=== PATIENT | female | born 1965 | race Hispanic/Latino ===

== ENCOUNTER 2017-05-28 09:24 | Inpatient (IN) | payer OTHER ==
[~2017-05-28] VITALS: Ht 160 cm; Wt 77.9 kg
[2017-05-28 09:38] VITALS: BP 144/73; PULSE 126; RESP 24; O2SAT 100
--- NOTE | 2017-05-28 09:39 | ED.REPORT ---
HPI-General Illness Date of Service May 28, 2017 ED Provider: Dr. Dejesus Pt is a 52 year old female with a hx of hypothyroid and recently diagnosed DM presenting to the ED complaining of vomiting onset 1 week ago. Associated symptoms include constipation, dizziness, thirsty, dry mouth, [place], blurry vision, and weakness. Denies abdominal pain, cough, or any other symptoms at this time. Nursing Notes Stated Complaint: BLURRY VISION/WEAK/HEAVY BREATHING Chief Complaint: General Complaint Nursing Notes Reviewed: Yes Allergies: Coded Allergies: Penicillins (Verified Allergy, Unknown, swelling, 05/28/17) General Time Seen by MD: 09:38 Chief Complaint Vomiting Hx Obtained From: Patient Arrived By: Walk-in Sudden in Onset?: No Onset Occurred: 1 week ago Symptom Duration: Since onset Severity: Current: No pain currently Severity: Maximum: No pain Recent Healthcare: No recent doctor visit, No recent hospitalization Similar Sx Previous: No Past Medical History Past Medical History hypothyroid, recent dx of DM Past Surgical History denies Smoking History Never Smoker Social History Alcohol Use: "Social" Ambulatory Status Independent Review of Systems Full Review of Systems Eyes: Reports: Blurred bilateral Respiratory: Denies: Non-productive cough GI: Reports: Constipation, Nausea, Vomiting, Denies: Abdominal pain, Diarrhea Neurologic: Reports: Dizziness, Weakness Complete sys rev & neg: except as marked. Physical Exam Vital Signs Vital Signs Date Time Temp Pulse Resp B/P Pulse Ox O2 Delivery O2 Flow Rate FiO2 05/28/17 10:26 118 28 142/83 100 Room Air 05/28/17 09:38 36.4 126 24 144/73 100 Room Air Initial VS: Reviewed General/Constitutional: Well-developed, Well-nourished Head / Eyes: Atraumatic, Normocephalic, PERRL ENT: Mucous membranes moist, Conjunctiva normal, No scleral icterus Abdomen / GI: Soft, Non-tender, No guarding, No rebound, No distention Extremities: Vascular intact, Neuro intact, No swelling, No tenderness Skin: Warm, Dry, No cyanosis Psychiatric: Mood/affect normal, Behavior normal, Normal thought content Head / Eyes: Atraumatic, Normocephalic, PERRL, EOMI Mouth dry Respiratory / Chest: Atraumatic, Breath sounds NL Tachypnic. Kussmal breathing. Cardiovascular: Regular rhythm, Heart sounds NL Tachycardic Neurologic: Oriented X3, Speech NL, No motor deficits, No sensory deficits, CN II - XII intact, Cerebellar NL Interpretation & Diagnostics Interpretation & Diagnostics: Blood Gas: pH: 7.173 pCO2: 19 pO2: 63.5 cHCO3: 6.7 cBase: -20.9 Lab Results Interpretation Result Diagram: 05/28/17 1000 05/28/17 1000 Test 05/28/17 10:00 05/28/17 10:35 White Blood Count 23.4th/mm3 (3.8-10.1) Red Blood Count 5.39mil/mm3 (3.90-5.20) Hemoglobin 15.1g/dL (12.0-15.6) Hematocrit 47.0% (35.0-46.0) Mean Corpuscular Volume 87.2fL (81-100) Mean Corpuscular Hemoglobin 28.0pg (27.0-35.0) Mean Corpuscular Hemoglobin Concent 32.1% (32.0-37.0) Red Cell Distribution Width 15.2% (12.3-15.4) Platelet Count 206bil/L (150-400) Neutrophils (%) (Auto) 88.0% (40-74) Lymphocytes (%) (Auto) 6.8% (14-46) Monocytes (%) (Auto) 4.3% (4-12) Eosinophils (%) (Auto) 0% (0-5) Basophils (%) (Auto) 0.2% (0-3) Sodium Level 140mEq/L (134-144) Potassium Level 4.8mEq/L (3.5-5.2) Chloride Level 93mEq/L (97-108) Carbon Dioxide Level 6mmol/L (18-29) Blood Urea Nitrogen 44mg/dL (6-24) Creatinine 1.44mg/dL (0.57-1.00) Estimat Glomerular Filtration Rate 55mL/min (>59) Glucose Level 765mg/dL (60-99) Calcium Level 10.0mg/dL (8.5-10.1) Magnesium Level 2.8mg/dL (1.6-2.6) Total Bilirubin 0.4mg/dL (0.0-1.2) Aspartate Amino Transf (AST/SGOT) 65U/L (0-50) Alanine Aminotransferase (ALT/SGPT) 91U/L (0-32) Alkaline Phosphatase 223U/L (25-150) Total Protein 9.1g/dL (6.4-8.4) Albumin 4.6g/dL (3.4-5.0) Hold Christianson Top Tube Received (Received) Ketones Small (Negative) Urine Color Straw (YELLOW) Urine Appearance Hazy (CLEAR,HAZY) Urine pH 5.5 (5.0-8.0) Urine Specific [place] 1.020 (1.003-1.035) Urine Protein 100mg/dL (NEG,TRACE) Urine Glucose (UA) 1000mg/dL (NEGATIVE) Urine Ketones 80mg/dL (NEGATIVE) Urine Occult Blood Large (NEGATIVE) Urine Nitrite Negative (NEGATIVE) Urine Bilirubin Negative (NEGATIVE) Urine Urobilinogen Normalmg/dL (NORMAL) Urine Leukocyte Esterase Negative (NEGATIVE) Urine RBC 3-10/hpf (0-2) Urine WBC 0-5/hpf (0-5) Urine Epithelial Cells Occasional/hpf (NONE-MOD) Urine Crystals None seen (NONE SEEN) Urine Bacteria Few/hpf (NONE-FEW) Urine Hyaline Casts None/lpf (NONE) Urine Granular Casts Occasional (NONE SEEN) Urine Waxy Casts None seen (NONE SEEN) Urine Red Blood Cell Casts None seen (NONE SEEN) Urine White Blood Cell Casts None seen (NONE SEEN) Urine Mucus None seen (None Seen) Urine Trichomonas None seen (NONE SEEN) Urine Yeast None (NONE SEEN) Urinalysis Comment None Urine Culture Reflexed Not indicated ECG Interpretation ECG Interpretation: Sinus tachycardia at rate of 110 and LVH. Time: 12:05 Interpreted by: ED physician X-Ray Chest Interpretation Chest Xray Interpretation: IMPRESSION: No acute cardiopulmonary disease. Dictated by: Eduard Dan M.D. on 05/28/2017 at 10:00 View: Portable, 1 view Interpretation / Wet Read by: Interpret - Radiologist Re-Eval/Medical Decision Med Decision/Clinical Course Findings of DKA. No obvious source of infection however the liver function tests are abnormal. Ultrasound is ordered to exclude infection though this may likely represent shock as well. Insulin drip initiated in the ER after IV fluids. Time of Eval: 10:06 Patient Status: Condition improved Re-Evaluation/Progress Note: Discussed past medical history. Time of Eval: 10:34 Patient Status: Condition improved Re-Evaluation/Progress Note: Abdomen soft non tender. Denies fever, chills or cough. No infectious symptoms. Discussed plan for admission. Pt understands and agrees. Consultation : Referral / Consult Name: Sunita Deras DO Consulted With: Hospitalist Call Returned at: 11:18 House Wrecker: Will see patient, Agrees with plan, Accepts admit Counseled Regarding: Diagnosis, Lab results, Need for follow-up, When/why to return to ED Discharge & Departure Primary Impression: DKA (diabetic ketoacidoses) Diabetes mellitus type: type 2 Diabetes mellitus complication detail: without coma Qualified Code: E13.10 - Other specified diabetes mellitus with ketoacidosis without coma Disposition: Home Discharge Condition All VS Reviewed: Yes Condition: Improved Referrals: Xochilt Baum (PCP) Crit Care Except Billable Proc Time Spent: 30-74 minutes Services Performed: Patient management by me, Time spent at bedside, Reviewing test results Critical Care Notes: See MDM Scribe Attestation Portions of this note were transcribed by Hailee Zurita. I, Dr. Dejesus personally performed the history, physical exam and medical decision-making; I reviewed and confirmed the accuracy of the information in the transcribed note. Signed by: Meka Martin, 05/28/17 at 1123. copies to: Xochilt Baum Timothy S DO May 28, 2017 09:39 HAILEE ZURITA May 28, 2017 09:48
[2017-05-28] MEDS ORDERED: 0.9% Sodium Chloride 1,000 ML IV ONE (09:46)
[2017-05-28] MEDS ORDERED: 0.9% Sodium Chloride 1,000 ML IV SCH ×2 (09:50→11:19)
[2017-05-28 10:26] VITALS: BP 142/83; PULSE 118; RESP 28; O2SAT 100
--- NOTE | 2017-05-28 10:27 | ABG ---
DateTimeAnalyzed 10:21:00 -_ pH ____7.173 - pCO2 ___18.9__ -mmHg pO2 ___63.5__ -mmHg HCO3- ____6.7__ -mmol/L ABE __-20.9__ -mmol/L tHb ___15.8__ -g/dL O2Hb ___84.4__ -% COHb ____2.2__ -% MetHb ____0.4__ -% sO2 ___86.7__ -% FIO2 ___21.0__ -% Drawn By LAB - Date/Time Notified____ 10:27:00 -_ Notified By btl - Notified Whom ___Dr. O'Lalita - B 759 -mmHg tO2 ___18.7__ -Vol%
[2017-05-28 10:30] LABS: BASOPHILS % (AUTO) 0.2 % (0-3); EOSINOPHILS % (AUTO) 0 % (0-5); MONOCYTES % (AUTO) 4.3 % (4-12); Mean Corpuscular Volume 87.2 fL (81-100); Platelet Count 206 bil/L (150-400)
[2017-05-28] MEDS ORDERED: Insulin Human REGular Inj 100 UNIT in 0.9% Sodium Chloride 100 ML IV SCH ×2 (10:35→14:00)
[2017-05-28 10:58] LABS: Magnesium 2.8 mg/dL (1.6-2.6)
--- NOTE | 2017-05-28 11:02 | DRSVH ---
PROCEDURE: X-RAY CHEST ONE VIEW, PORTABLE ([id number]) INDICATIONS: 52 year-old female with tachypnea. TECHNIQUE: One view of the chest was acquired. COMPARISON: None. FINDINGS: Surgical changes and devices: None. Lungs and pleura: No pleural effusions or pneumothorax. Lungs are clear. Lung volumes are decrease d. Mediastinum: Mediastinal contours appear normal. Heart size is normal. Bones and chest wall: No suspicious bony lesions. Overlying soft tissues appear unremarkable. IMPRESSION: No acute cardiopulmonary disease. Dictated by: Eduard Dan M.D. on 05/28/2017 at 10:00 Approved by: Eduard Dan M.D. on 05/28/2017 at 10:01
--- NOTE | 2017-05-28 11:12 | NUR ---
NUTRITION CONSULT RN called re pt with newly diagnosed diabetes, no h/o diabetic education and asking RN a lot of diet questions. RN concerned pt may leave AMA prior to being admitted for DKA. Spoke with pt and family at length with tanning consultant present re diabetic diet, portion sizes, metformin side effects and hypoglycemia. Provided pt with TrueMetrix meter; pt will need prescription for strips. Once pt admitted will need to consult MOC RN for glucometer instruction. Will f/u PRN. Referral for outpatient diabetic education completed.
[2017-05-28 11:19] LABS: APPEARANCE,URINE HAZY (CLEAR,HAZY); COLOR,URINE STRAW (YELLOW); OCCULT BLOOD,URINE LARGE (NEGATIVE); PH,URINE 5.5 (5.0-8.0)
[2017-05-28] MEDS ORDERED: Alum-Mag Hydrox-Simeth 30 mL Suspension PO PRN ×2 (11:20→11:30)
[2017-05-28] MEDS ORDERED: Ondansetron 2 mg/mL 2 mL Inj IVPUSH PRN ×2 (11:20→11:30)
[2017-05-28 11:21] LABS: UROBILINOGEN,URINE NORMAL (NORMAL)
[2017-05-28 12:40] VITALS: BP 131/70; PULSE 101; RESP 27; O2SAT 99
--- NOTE | 2017-05-28 12:40 | NUR ---
Arrival to room 2017 Patient escorted from ED to room 2017. motor adjuster at bedside. Alert and oriented x 3. Transferred from cart to bed with steady gait. Denies pain. nuclear monitoring technician applied, ST with HR in the low 100s. Pressure stable. Afebrile. Denies SOA. Sp02>92% on room air. No reported nausea. Complaints of excessive thirst. Bedside blood glucose 456, Dr Bean notified and insulin gtt adjusted per DKA policy. Patient oriented to room, call light and plan of care. Will continue to monitor.
[2017-05-28 13:02] VITALS: BP 123/72; PULSE 101; RESP 26; O2SAT 99
[2017-05-28] MEDS ORDERED: Potassium Chloride Inj 40 MEQ in Dextrose 5% 250 ML IV ONE (13:55)
[2017-05-28] MEDS ORDERED: LEVO112T4 PO (13:56)
[2017-05-28] MEDS ORDERED: METF500T7 PO (13:56)
[2017-05-28] MEDS: Heparin 5,000 Unit/mL Inj SUBQ SCH ×2 (13:59→16:50)
[2017-05-28] MEDS ORDERED: SODIUM CHLORIDE 0.45% IV ONE (14:00)
[2017-05-28] MEDS ORDERED: POTASSIUM CHLORIDE IV ONE (14:00)
[2017-05-28] MEDS ORDERED: D5 0.45% NaCl + KCl 40 mEq/L 1,000 ML IV ONE (14:10)
--- NOTE | 2017-05-28 15:35 | DRSVH ---
PROCEDURE: US ABDOMEN INDICATIONS: leukocytois, abn LFT, vomiting, (also in DKA) TECHNIQUE: Real-time scanning was performed of the abdominal and retroperitoneal organs, with image documentatio n. COMPARISON: None. FINDINGS: Liver length: 13.74 cm Gallbladder Wall Thickness: 2.50 mm CHD: Not well-seen CBD: 3 mm Spleen length: 9.02 cm Right kidney length: 11.06 cm Left kidney length: 11.81 cm Aorta(Proximal): 2.29 cm Aorta(Mid): 1.69 cm Aorta(Distal): 1.55 cm RCIA: 1.04 cm LCIA: 1.05 cm Liver: There is coarse echogenic appearance of the liver in keeping with diffuse hepatocellular disea se/fatty infiltration Gallbladder: Unremarkable. No wall thickening. No sonographic Soler's sign. Focal fatty sparing seen adjacent to the gallbladder anteriorly. Biliary ducts: Intrahepatic bile ducts are non-dilated. Extrahepatic bile duct caliber is normal. Normal is 6-7 mm or less in diameter, or 10 mm or less post-cholecystectomy. Pancreas: Visualized portions of the pancreas are sonographically normal. Spleen: Spleen is normal in size and homogeneous in echotexture. Kidneys: Kidneys are normal in size and echotexture. No hydronephrosis or nephrolithiasis. No gera d masses. Left renal cyst with simple appearance measuring 1.9 cm in the upper pole Aorta: Visualized aorta is normal in caliber at less than 3 cm. Iliacs: Proximal common iliac arteries are normal in caliber at less than 2.5 cm. IVC: Intrahepatic inferior vena cava is patent. Miscellaneous: No free abdominal fluid. IMPRESSION: Echogenic liver suggestive of diffuse hepatocellular disease/fatty filtration. Normal appearance of the gallbladder. Pancreas not well seen and recommend clinical/laboratory correlation. Left renal cyst. Dictated by: Oli Hidalgo M.D. on 05/28/2017 at 15:30 Approved by: Oli Hidalgo M.D. on 05/28/2017 at 15:33
[2017-05-28 15:49] VITALS: BP 101/59; PULSE 103; RESP 19; O2SAT 100
[2017-05-28] MEDS: Diphen-Lido-Mylanta 1:1:1 Susp 15 mL Syringe PO SCH (16:50)
--- NOTE | 2017-05-28 17:15 | PCM.HPMED ---
Subjective Date of Service May 28, 2017 Primary Provider: Admitting Physician: Sunita Deras DO Primary Care Physician: Xochilt Baum Attending Physician: Sunita Deras DO Chief Complaint: Vomiting and malaise History of Present Illness: Ms. Marie Vincent is a very pleasant primary Indonesian speaking lady admitted to [facility] for one week hx of increased thirst, oral thrush, malaise, nausea and vomiting, blurry vision, lower extremity cramps, weakness and constipation. She reports 1 month ago visiting a medical clinic and was told due to her Hemoglobin A1c level of 7.6 that she was "pre-diabetic"and should begin Metformin 500 mg ER daily. After roughly 2 weeks, she began to experience blurry vision, a sore throat and oral thrush. She took baking-soda for her sore throat but her weakness continued to deteriorate. Around the 22 of May she experienced some significant family stress along with new onset nausea and vomiting. during the past week she added more sugar to her coffee and increased her intake of milkshakes and other sweet drinks. She continued to remain very thirsty and very weak and decided to come to the emergency department. Upon arrival her vitals were as follows; T-36.4, HR 126, RR 24, BP 144/73, 100% RA. Labs showed - WBC 23.4, Neuts 88 %, Na - 140, K+ 4.8, BUN 44, Cre 1.44, Glu 765 , Mag 2.8, AST/ALT/ALk p - 65/91/223. A1c pending. CXR - no acute cardiopulmonary disease. Abdomen US - Echogenic liver suggestive of diffuse hepatocellular disease/fatty filtration, Pancreas not well seen and recommend clinical/laboratory correlation. Left renal cyst. ABG DateTimeAnalyzed 10:21:00 -_ pH ____7.173 - pCO2 ___18.9__ -mmHg pO2 ___63.5__ -mmHg HCO3- ____6.7__ -mmol/L Review of Systems: A comprehensive review of systems was conducted with the patient and found to be negative except as above in the History of Present Illness. Allergies Coded Allergies: Penicillins (Verified Allergy, Unknown, swelling, 05/28/17) Home Medications Metformin 500 mg ER Daily Levothyroxine 112 Mcg Daily PMH hypothyroid recent dx of DM Surgical History None Family History "Cancer" fathers side. Social History Occupation: food service worker Hx Alcohol Use: Yes ("rarely") Hx Substance Use: No Hx Tobacco Use: No Smoking Status: Never Smoker Living Arrangement: with Family Exam Vital Signs Vital Sign - Last Date Time Temp Pulse Resp B/P Pulse Ox O2 Delivery O2 Flow Rate FiO2 05/28/17 15:49 37.1 103 19 101/59 100 Room Air Exam General: No acute distress, well-developed, well-nourished, appropriately interactive HEENT: Normocephalic, atraumatic. External ears without defect. Pupils equal, round, and reactive to light and accommodation. Anicteric sclerae, dry conjunctivae, and no lid lag. Oropharynx free of erythema and cobble stoning with dry erythematous oral mucosa with white film posteriorly. Neck: Supple with full range of motion. Mild jugular venous distension. No bruits. No lymphadenopathy or thyromegaly. Cardiovascular: Tachycardic rate and regular rhythm with no murmurs, rubs, or gallops appreciated Pulmonary: Clear to auscultation bilaterally with no crackles, wheezes, or rhonchi. Normal respiratory effort with no use of accessory muscles. Abdomen: Bowel tones present. Soft, mildly obese nontender, nondistended. No hepatosplenomegaly or masses appreciated. Extremities: No clubbing, cyanosis, edema, or lymphadenopathy appreciated. Skin: Normal temperature, decreased skin turgor, and texture; no rash, ulcers, or subcutaneous nodules appreciated, Dry appearing skin. Neurological: Cranial nerves grossly intact. Normal muscle strength, tone, and bulk. Reflexes, coordination, and sensory function within normal limits. No known gait impairment. Psychiatric: Normal mood and affect. Alert and oriented to person, place, and time. Lab and Diagnostics Result Diagram: 05/28/17 1000 05/28/17 1305 Assessment & Plan Ms. Marie Vincent is a very pleasant primary Indonesian speaking lady admitted to [facility] for Diabetic Ketoacidosis and oral thrush. Of Note - Patient has a scheduled flight to [place] on Sunday. Diabetic Keto-Acidosis, Present on admission. Active. - Likely combination of HHS and DKA. - On DKA protocol for Insulin/Fluid/Electrolyte management. - Anion Gap on admission - 41. Repeat Q3H - 35. - Currently Running 1L D5 1/2 NS with 40 MEq K+ @ 250ml / hr. Will re-evaluate fluids depending upon labs at 1800. - Repeat CMP Q4H till Gap closes. - ABG as above. - May resume PO Carb-consistent diet when Anion Gap closes. - HA1c pending. Elevated Trans-aminases, present on admission. Active. - DDx shock liver/fatty liver. - AST/ALT/Alk phos - 65/91/223. - Abd US as above. Fatty liver. Oral Candidiasis, Present on admission. Active. - Magic Mouthwash Daily. - Fluconazole 100 mg daily for 7-10 days. Hypothyroid - Continue home Levothyroxine - 115 Mcg Daily. - TSH pending Acetaminophen for mild pain when necessary. Bowel regimen Senna and MiraLAX scheduled and PRN. Zofran when necessary for nausea and vomiting. SubQ heparin for now. SCDs in place. High-risk medications: NONE ICU: ABG: Drips: Insulin. Patient Status: Patient is admitted under inpatient status with expected length of stay greater than 2 midnights due to severity of presenting symptoms, risk of adverse event, and complexity of treatment plan. Pain Evaluation: Adequate Pain Control VTE Mechanical Devices: Intermittant Pneumatic CD Resuscitation Status: CPR: Attempt Resuscitation Attending Statement The patient was seen and examined together with Dr. Lo on 05/28/17 and I have added additional information to the note above. REBECA LO DO May 28, 2017 16:32 Sunita Deras DO May 31, 2017 17:59
[2017-05-28] MEDS ORDERED: Dextrose 10% 1,000 ML IV PRN (18:30)
[2017-05-28] MEDS ORDERED: D5 0.45% NaCl + KCl 40 mEq/L 1,000 ML IV SCH (18:30)
[2017-05-28] MEDS ORDERED: Dextrose 5% 0.45% NaCl 1,000 ML IV SCH (19:20)
[2017-05-28 20:30] VITALS: BP 111/53; PULSE 99; RESP 22; O2SAT 95
[2017-05-28] MEDS ORDERED: Potassium Chloride Inj 20 MEQ in Dextrose 5% 250 ML IV ONE (23:05)
[2017-05-29] MEDS: Heparin 5,000 Unit/mL Inj SUBQ SCH ×3 (00:28→17:22)
[2017-05-29 00:30] VITALS: BP 108/56; PULSE 83; RESP 21; O2SAT 96
[2017-05-29 04:30] VITALS: BP 90/49; PULSE 81; RESP 21; O2SAT 95
--- NOTE | 2017-05-29 06:03 | NUR ---
P: Anion gap, 18, 17 I: continue DKA protocol E: Dutch speaking. Family helpful w/ interpretation. Son spending night. Denies pain, dyspnea, N/V. CMP every 4 hours. K+ 3.4 and 20mEq K+ rider given. RA, sats mid 90s. Tele SR. Low stable BP. Denies discomfort voiding via BSC. Dutch and Turkish Diabetes booklets given to daughter. Dr. Howe aware of all lab values tonight.
--- NOTE | 2017-05-29 06:46 | NUR ---
Dr. Cruz aware of lab values. K+ 3.4 this AM. Anion Gap 15. Pt has no c/o. Continue DKA protocol. No further orders.
[2017-05-29] MEDS ORDERED: Potassium Chloride 20 mEq SR Tablet PO ONE (06:55)
[2017-05-29 07:02] LABS: BASOPHILS % (AUTO) 0.1 % (0-3); EOSINOPHILS % (AUTO) 0.6 % (0-5); MONOCYTES % (AUTO) 7.7 % (4-12); Mean Corpuscular Hemoglobin 28.1 pg (27.0-35.0); Mean Corpuscular Volume 85.8 fL (81-100); NEUTROPHILS % (AUTO) 70.1 % (40-74); Platelet Count 124 bil/L (150-400)
[2017-05-29] MEDS: Polyethylene Glycol (PEG) 17 Gm Powder PO PRN (07:31)
[2017-05-29 08:00] VITALS: BP 106/55; PULSE 68; RESP 21; O2SAT 97
[2017-05-29] MEDS: Diphen-Lido-Mylanta 1:1:1 Susp 15 mL Syringe PO SCH (08:22)
[2017-05-29] MEDS ORDERED: Insulin GLARgine 100 Unit/mL Syringe SUBQ ONE (10:55)
[2017-05-29 12:00] VITALS: BP 109/55; PULSE 93; RESP 20; O2SAT 96
--- NOTE | 2017-05-29 12:09 | PCM.PNMED ---
Subjective Date of Service May 29, 2017 Subjective Overnight there were no acute events. This morning the patient is feeling better, denying any further episodes of weakness or dizziness and has been able to get up and move about her room without issue. She denies any fever/chills, nausea/vomiting/diarrhea, shortness of breath, chest pain or palpitations. Exam Vital Signs Vital Sign - Last Date Time Temp Pulse Resp B/P Pulse Ox O2 Delivery O2 Flow Rate FiO2 05/29/17 08:00 36.9 68 21 106/55 97 Room Air Intake and Output 05/28/17 05/28/17 05/29/17 Cumulative From/Thru 15:00 23:00 07:00 05/28/17 10:45 - 05/29/17 05:55 Intake Total 2000 ml 2165 ml 1741 ml 5906 ml Output Total 400 ml 425 ml 825 ml Balance 2000 ml 1765 ml 1316 ml 5081 ml Intake Oral 250 ml 200 ml 450 ml IV Total 2000 ml 1915 ml 1541 ml 5456 ml Output Urine Total 400 ml 425 ml 825 ml # Bowel Movements 0 0 Exam General: female in no acute distress, well-developed, well-nourished, appropriately interactive HEENT: Normocephalic, atraumatic. Pupils equal, round, and reactive to light and accommodation. Anicteric sclerae, dry conjunctivae, and no lid lag. Oropharynx pink and moist, oral cavity with some white exudate. Neck: Supple with full range of motion. Mild jugular venous distension. No bruits. No lymphadenopathy or thyromegaly. Cardiovascular: RRR with no murmurs, rubs, or gallops appreciated Pulmonary: Clear to auscultation bilaterally with no crackles, wheezes, or rhonchi. Normal respiratory effort with no use of accessory muscles. Abdomen: Bowel tones present. Soft, mildly obese nontender, nondistended. No hepatosplenomegaly or masses appreciated. Extremities: No clubbing, cyanosis, edema, or lymphadenopathy appreciated. Skin: Normal temperature, decreased skin turgor, and texture; no rash, ulcers, or subcutaneous nodules appreciated, Dry appearing skin. Neurological: Cranial nerves grossly intact. Normal muscle strength, tone, and bulk. Reflexes, coordination, and sensory function within normal limits. No known gait impairment. Psychiatric: Normal mood and affect. Alert and oriented to person, place, and time. IVs and Medications Medications Reviewed: Medications were reviewed in detail Lab and Diagnostics Result Diagram: 05/29/17 0535 05/29/17 0930 X-Rays, CTs and MRIs Abd US 05/28 IMPRESSION: Echogenic liver suggestive of diffuse hepatocellular disease/fatty filtration. Normal appearance of the gallbladder. Pancreas not well seen and recommend clinical/laboratory correlation. Left renal cyst. Dictated by: Oli Hidalgo M.D. on 05/28/2017 at 15:30 Approved by: Oli Hidalgo M.D. on 05/28/2017 at 15:33 Chest Xray 05/28 IMPRESSION: No acute cardiopulmonary disease. Dictated by: Eduard Dan M.D. on 05/28/2017 at 10:00 Approved by: Eduard Dan M.D. on 05/28/2017 at 10:01 Assessment & Plan Ms. Marie Vincent is a very pleasant primary Kosovan speaking lady admitted to [facility] for Diabetic Ketoacidosis and oral thrush. Of Note - Patient has a scheduled flight to [place] on Sunday. Diabetic Keto-Acidosis, Present on admission. Active. - Likely combination of HHS and DKA. - HA1c 12.1 - On DKA protocol for Insulin/Fluid/Electrolyte management. - Anion Gap slowly closing at 15, 05/29 @ 0900 - Continue to repeat CMP Q4H till Gap closes. - Diabetic diet once her gap is closed and the insulin drip is discontinued - Lantus (0.3 U/kg) ordered for when gap closes - Will transfer out of CCU today if the gap closes Elevated Trans-aminases secondary to Fatty Liver, present on admission. Active. - Abd US reveals fatty liver - Avoid tylenol Oral Candidiasis, Present on admission. Active. Improving. - Continue Magic Mouthwash Daily. - Fluconazole 100 mg daily for 7-10 days. Hypothyroid - Continue home Levothyroxine - 115 Mcg Daily. Acetaminophen for mild pain when necessary. Bowel regimen Senna and MiraLAX scheduled as necessary Zofran when necessary for nausea and vomiting. SubQ heparin for now. SCDs in place. High-risk medications: NONE ICU: ABG: Drips: Insulin. Patient Status: Patient will likely be downgraded from the CCU to the PCC today depending on her continued response to the insulin drip and successful transfer to long acting insulin, with a couple VTE Mechanical Devices: Intermittant Pneumatic CD Resuscitation Status: CPR: Attempt Resuscitation Attending Statement The patient was seen and examined together with Dr. Fernandez on 05/29/17 and I have added additional information to the note above. Riley Fernandez DO May 29, 2017 12:09 Sunita Deras DO May 31, 2017 17:16 Sunita Deras DO May 31, 2017 17:16
--- NOTE | 2017-05-29 13:38 | NUR ---
NUTRITION ASSESSMENT: ASSESS: Pt is a 52yo F admitted to CCU for DKA. Pt was recently diagnosed with DM. She is currently NPO and on DKA protocol. She received DM diet education per RD on 05/28. PMHX: hypothyroid, new DM diagnosis LABS: Reviewed. K 3.4, Cl 111, Glu 142, AST 68, ALT 60, Alb 3.3, A1C 12.1 MEDS: Reviewed. Senna, miralax GI: 0 BM SKIN: no major issues CURRENT WTS: 77.9kg, BMI 30.4kg/m2, IBW 52.3kg DIET: NPO EST. NEEDS: BMI Kcals: 1560-1715kcal/day (20-22kcal/kg) Pro: 65-80g/day (1.2-1.5g/kg IBW) NUTRITION DIAGNOSIS: 1.) Altered nutrition related lab values related to endocrine dysfunction as evidence by A1C of 12.1 2.) Inadequate oral intake related to decreased ability to consume sufficient energy as evidenced by current NPO status NUTRITION INTERVENTION: 1.) DM diet education provided 05/28. Please see RD Consult note under nutrition tab regarding further information on education. 2.) Recommend advance diet when medically appropriate MONITOR / EVAL: NPO, labs, wt, gi, POC, nutrition status. Will continue to monitor per moderate nutrition risk guidelines
[2017-05-29] MEDS ORDERED: Glucose 40% Oral Gel 15 Gm Tube PO PRN (14:15)
--- NOTE | 2017-05-29 15:56 | NUR ---
Social Work Note: Screen Note/Multidisciplinary Rounds Data& Assessment: EMR reviewed. Pt was discussed in AM rounds, Per MD pt is getting closer to being medically ready for discharge and her DKA is being resolved. Marie Vincent is a 52 year old female admitted on05/28/2017 for DKA. Pt has [facility] insurance coverage and sees SARANYA Rhodes for primary care. Pt lives in [place] with family and is independent at baseline with ADL's. Pt ambulating in room SBA. No discharge needs or MD orders identified at this time. SW to continue to follow if any needs or orders arise. Plan: Anticipated discharge home via POV. No discharge needs or MD orders identified at this time. SW to continue to follow if any needs or orders arise. ARAMIS Dorsey
[2017-05-29 16:22] VITALS: BP 112/57; PULSE 85; RESP 20; O2SAT 100
[2017-05-29] MEDS: Insulin LISPRO 300 Unit/3 mL Inj SUBQ SCH ×2 (17:22→22:31)
[2017-05-29 20:30] VITALS: BP 122/69; PULSE 96; RESP 16; O2SAT 96
[2017-05-29] MEDS ORDERED: Artificial Tears 15 mL Ophthalmic Solution BOTH_EYES PRN (22:20)
[2017-05-30 00:12] VITALS: BP 118/71; PULSE 92; RESP 16; O2SAT 96
[2017-05-30 03:07] LABS: BASOPHILS % (AUTO) 0.2 % (0-3); EOSINOPHILS % (AUTO) 3.1 % (0-5); Mean Corpuscular Hemoglobin 28.1 pg (27.0-35.0); NEUTROPHILS % (AUTO) 68.6 % (40-74); Platelet Count 102 bil/L (150-400)
[2017-05-30 03:10] VITALS: BP 117/66; PULSE 85; RESP 16; O2SAT 97
[2017-05-30] MEDS: Heparin 5,000 Unit/mL Inj SUBQ SCH ×3 (03:18→16:57)
--- NOTE | 2017-05-30 04:39 | NUR ---
Activity, nutrition Vs as noted. Denies pain or discomforts. Up to bathroom independently. Blood glucose 269 and 238 on low dose insulin sliding scale.
[2017-05-30] MEDS ORDERED: Insulin GLARgine 100 Unit/mL Syringe SUBQ SCH ×3 (06:20→21:00)
[2017-05-30 08:35] VITALS: BP 114/59; PULSE 82; RESP 18; O2SAT 97
[2017-05-30] MEDS: Polyethylene Glycol (PEG) 17 Gm Powder PO PRN (08:37)
[2017-05-30] MEDS: Diphen-Lido-Mylanta 1:1:1 Susp 15 mL Syringe PO SCH (08:38)
[2017-05-30] MEDS: Insulin LISPRO 300 Unit/3 mL Inj SUBQ SCH ×4 (08:39→21:44)
[2017-05-30] MEDS ORDERED: Glucose 40% Oral Gel 15 Gm Tube PO PRN ×2 (10:30→10:35)
[2017-05-30] MEDS ORDERED: Insulin GLARgine 100 Unit/mL Syringe SUBQ ONE ×2 (10:30→15:35)
--- NOTE | 2017-05-30 11:18 | NUR ---
Blood glucose/education AM bedside glucose reading elevated, 291. 23 units of scheduled lantus and SSI administered. MD notified of uncontrolled glucose, SSI level increased and lantus dose changed to 30 units. peer educator contacted and notified of pt education needs, planning to visit with pt after 17:00 this evening. Will continue to monitor.
[2017-05-30] MEDS ORDERED: Insulin LISPRO 300 Unit/3 mL Inj SUBQ SCH (12:00)
[2017-05-30 12:22] VITALS: BP 105/64; PULSE 93; RESP 14; O2SAT 94
--- NOTE | 2017-05-30 15:22 | PCM.PNMED ---
Subjective Date of Service May 30, 2017 Subjective Overnight there were no acute events. Mrs. Vincent says she is feeling better but is still unsure why this happened. We discussed her condition through an Basket Turner, dietary modifications and lifestyle changes to maintain her health. She is leaving for [place] in 2 days and would like to have some medications to avoid getting sick [place]. Exam Vital Signs Vital Sign - Last Date Time Temp Pulse Resp B/P Pulse Ox O2 Delivery O2 Flow Rate FiO2 05/30/17 12:22 93 14 105/64 94 Room Air 05/30/17 08:35 37.0 Intake and Output 05/29/17 05/29/17 05/30/17 Cumulative From/Thru 15:00 23:00 07:00 05/28/17 10:45 - 05/30/17 06:58 Intake Total 640 ml 550 ml 7096 ml Output Total 400 ml 1100 ml 2325 ml Balance 240 ml -550 ml 4771 ml Intake Oral 640 ml 550 ml 1640 ml IV Total 5456 ml Output Urine Total 400 ml 1100 ml 2325 ml # Voids 2 2 # Bowel Movements 0 Exam General: female in no acute distress, well-developed, well-nourished, appropriately interactive HEENT: NCAT. PERRLA, EOMI. Oropharynx pink and moist, the white exudate in her oropharynx is largely gone Neck: Supple with full ROM. No JVD or thyromegaly. Cardiovascular: RRR with no murmurs, rubs, or gallops appreciated Pulmonary: CTA bilaterally with no crackles/wheezes/rhonchi. Normal respiratory effort. Abdomen: Bowel tones present. Soft, mildly obese nontender, nondistended. No hepatosplenomegaly appreciated. Extremities: No clubbing, cyanosis, edema appreciated. Skin: Normal temperature, decreased skin turgor, and texture; no rash, ulcers, or subcutaneous nodules appreciated, Dry appearing skin. Neurological: Cranial nerves grossly intact. Normal muscle strength, tone, and bulk. Reflexes, coordination, and sensory function within normal limits. No known gait impairment. Psychiatric: Normal mood and affect. Alert and oriented to person, place, and time. IVs and Medications Medications Reviewed: Medications were reviewed in detail Lab and Diagnostics Result Diagram: 05/30/17 0300 05/30/17 0300 X-Rays, CTs and MRIs Abd US 05/28 IMPRESSION: Echogenic liver suggestive of diffuse hepatocellular disease/fatty filtration. Normal appearance of the gallbladder. Pancreas not well seen and recommend clinical/laboratory correlation. Left renal cyst. Dictated by: Oli Hidalgo M.D. on 05/28/2017 at 15:30 Approved by: Oli Hidalgo M.D. on 05/28/2017 at 15:33 Chest Xray 05/28 IMPRESSION: No acute cardiopulmonary disease. Dictated by: Eduard Dan M.D. on 05/28/2017 at 10:00 Approved by: Eduard Dan M.D. on 05/28/2017 at 10:01 Assessment & Plan Ms. Marie Vincent is a very pleasant primary Kyrgyz speaking lady admitted to [facility] for Diabetic Ketoacidosis and oral thrush. Patient has a scheduled flight to [facility] on Sunday. Diabetic Keto-Acidosis, Present on admission. Improving. - Likely combination of HHS and DKA. - HA1c 12.1 - Patient off DKA protocol 05/29, required 4 units an hour for 24h to achieve BS ~150 - Lantus 40 units qHS and 40 units in the morning with Lispro 6units at meals + correctional if needed - Evaluate BS in the morning and adjust Lantus accordingly - Diabetic diet with diabetic nutritional counseling scheduled 05/30 at 1700 - Will increase Metformin to 500mg PO BID Elevated Trans-aminases, present on admission. Stable. - Abd US reveals fatty liver - Avoid tylenol at this time Oral Candidiasis, Present on admission. Active. Improving. - Continue Magic Mouthwash - Continue Fluconazole 100 mg daily for 7-10 days Hypothyroidism, present on admission, chronic. Stable. - Continue home Levothyroxine 115 Mcg Daily. Naproxen for mild pain, avoiding Tylenol due to LFT's and fatty liver. Bowel regimen Senna and MiraLAX scheduled as necessary. Zofran when necessary for nausea and vomiting. SubQ heparin for now. SCDs in place. High-risk medications: NONE Patient Status: Patient will likely be discharged tomorrow depending on her continued medical stability and control of her blood sugars. She will need a cost-effective medication regimen on discharge as she will be spending 2-3 weeks in [place] with no access to medical resources. VTE Mechanical Devices: Intermittant Pneumatic CD Resuscitation Status: CPR: Attempt Resuscitation Attending Statement The patient was seen and examined together with Dr. Fernandez on 05/30/17 and I have added additional information to the note above. Riley Fernandez DO May 30, 2017 15:22 Sunita Deras DO May 31, 2017 17:32
--- NOTE | 2017-05-30 15:45 | NUR ---
RD DM Diet Education DM diet education completed with freelance interpreter/translator. Please see Inpt DM Screen and Assessment under Care Activity for further information regarding education.
[2017-05-30 16:12] VITALS: BP 108/70; PULSE 101; RESP 16; O2SAT 96
[2017-05-30] MEDS ORDERED: INSU100V7 SUBQ (16:37)
[2017-05-30 19:52] VITALS: BP 112/66; PULSE 98; RESP 20; O2SAT 98
[2017-05-31] MEDS: Heparin 5,000 Unit/mL Inj SUBQ SCH ×2 (00:24→08:30)
[2017-05-31 02:02] VITALS: BP 113/67; PULSE 90; RESP 16; O2SAT 94
--- NOTE | 2017-05-31 04:17 | NUR ---
P: hyperglycemic I: lantus, correctional insulin E: Denies pain, dyspnea, N/V. HS BS = 224 (lantus and correctional given), 0200 BS = 158, 0400 BS = 122. BRP. Pt denies any difficulty voiding. BM yesterday. VSS.
[2017-05-31 05:21] LABS: BASOPHILS % (AUTO) 0.2 % (0-3); EOSINOPHILS % (AUTO) 3.7 % (0-5); MONOCYTES % (AUTO) 6.1 % (4-12); Mean Corpuscular Hemoglobin 28.3 pg (27.0-35.0); Mean Corpuscular Volume 86.2 fL (81-100); NEUTROPHILS % (AUTO) 66.7 % (40-74); Platelet Count 78 bil/L (150-400)
--- NOTE | 2017-05-31 06:18 | NUR ---
Dr Macias updated on AM labs, low K+ and platelets, high WBC.
[2017-05-31] MEDS ORDERED: Potassium Chloride 20 mEq SR Tablet PO ONE (06:40)
[2017-05-31 08:00] VITALS: BP 116/72; PULSE 84; RESP 16; O2SAT 99
--- NOTE | 2017-05-31 09:13 | NUR ---
Called [facility] and faxed prescription over asking for patient cost per DEDICATED DRIVER and MD order Addendum: 05/31/17 at 1105 by LYUBOV DILL CM [facility] called back let us know there is no copay for the patient and they are filling it for her and will be ready for brick picker today. Updated ARAMIS
[2017-05-31] MEDS: Insulin LISPRO 300 Unit/3 mL Inj SUBQ SCH ×3 (09:43→18:19)
[2017-05-31] MEDS ORDERED: SODIUM CHLORIDE 0.9% IV SCH (10:35)
[2017-05-31] MEDS ORDERED: D5W 40 MEQ IV SCH (10:35)
[2017-05-31] MEDS ORDERED: KCL IV SCH (10:35)
[2017-05-31] MEDS ORDERED: Potassium Chloride Inj 40 MEQ in 0.9% Sodium Chloride 1,000 ML IV SCH (10:45)
[2017-05-31 14:57] LABS: Mean Corpuscular Hemoglobin 28.1 pg (27.0-35.0)
[2017-05-31 15:38] VITALS: BP 108/66; PULSE 89; RESP 16; O2SAT 97
--- NOTE | 2017-05-31 16:17 | NUR ---
Social Work: Multidisciplinary Rounds/Readiness for Discharge D/A: Pt discussed in am rounds. Pt may be ready for discharge today pending her K levels. Sw status remains unchanged; anticipate d/c home with no sw needs; no concerns about the patients capacity for self care noted by team. EMR reviewed; pt has been ambulating I during admission. CHIEF DISPATCHER received verification for insulin script coverage- there is no copay. notified. P: FLOOR ASSOCIATE to continue to follow. Anticipate home no sw needs via POV. ARAMIS Tompkins
[2017-05-31] MEDS ORDERED: INSU100V7 SUBQ (16:38)
[2017-05-31] MEDS ORDERED: METF500T4 PO (16:38)
[2017-05-31] MEDS ORDERED: INSLIS SUBQ (16:38)
--- NOTE | 2017-05-31 16:57 | PCM.DIMED ---
REBECA LO DO 05/31/17 1657: Discharge Instructions Date of Service May 31, 2017 Dates of Hospitalization May 28, 2017 at 11:27 Discharge Diagnosis Discharge Diagnosis Diabetic Keto-Acidosis. Medication Instructions Additional med instructions Start Lantus Insulin 40 Units twice per day. (40 Units in the morning and 40 Units at night just before bed time.) Start Lispro Insulin 6 Units before meals (three meals per day). Start Metformin 500 mg Twice per day. Continue home Synthroid for hypothyroidism. Avoid Tylenol (Acetaminophen) and Naproxen. You may take Motrin for periodic headaches. Sliding Scale Lispro insulin: Blood Sugars = Meal time insulin 141 - 199 = 1 Unit 200 - 249 = 2 Units 250 - 299 = 3 Units 300 - 349 = 4 Units > 349 = 5 Units Test Results Test Results Labs in 1-3 months with your primary care physician. - Hemoglobin A1c (every three months). I recommend yearly eye exams. I recommend monitoring for [id number] skin infections, especially in the feet and between the toes. Diet Discharge Diet: Diabetic Activity Discharge Activity: No restrictions Call your provider Call your provider for: Fever or Chills, Shortness of breath, Chest pain, Vomitting, Excessive diarrhea, Weakness (unilateral) Patient Instructions Patient Instructions Your goal Blood sugars should be between 80 and 120. It is very dangerous to have blood sugars below 60! IF you have blood sugars below 60, eat something with sugar in it. If your sugars are lower than 60 call your primary care physician or if you have symptoms of hypoglycemia including decreased level of consciousness or altered mental status, seek emergent medical professional help. Your diet is very important. Avoid carbohydrates (breads, potatoes, carrots, sugars, etc...). I recommend eating meats and vegetables (above ground vegetables). You will need Lab roughly every 3 months to follow your Hemoglobin A1c levels with a goal of below 6.5. We recommend that you document your measured blood sugars at least 5 times per day. First thing when you wake up in the morning. Just before you go to bed. And 1 hour after each meal. When you visit your primary care physician's office it would be very helpful to bring the journal of daily blood sugars, that way your primary care provider can make the necessary medication adjustments. We will write you a note for work stating that you have been admitted to the [facility] from the to the . We will also provide you with prescriptions for lancets and glucose test strips. We will provide you with additional diabetes education materials including home sliding scales. We Highly recommend diabetes education classes on a regular basis. Your liver function tests were slightly elevated, most likely due to Non- Alcoholic Steatohepatitis (RENO). It is important to follow up with your primary care physician in your visit 2 weeks from now. Follow-up plan We recommend very close follow up with your primary care physician immediately after arriving from [place]. We recommend that you document your measured blood sugars at least 5 times per day. First thing when you wake up in the morning. Just before you go to bed. And 1 hour after each meal. When you visit your primary care physician's office it would be very helpful to bring the journal of daily blood sugars, that way your primary care provider can make the necessary medication adjustments. Follow-up Provider: Xochilt Baum Follow-up with PCP in: 2 weeks (1-2 weeks) Sunita Deras DO 05/31/17 1801: Discharge Instructions Attending's Statement The patient was seen and examined together with Dr. Lo on 05/31/17 and I agree with the history, exam and plan as outlined in the note above. REBECA LO DO May 31, 2017 16:57 Sunita Deras DO May 31, 2017 18:01
[2017-05-31] MEDS ORDERED: IBUP200C8 PO (17:23)
--- NOTE | 2017-05-31 18:51 | NUR ---
Discharge Discharge orders received. All discharge instructions given to patient and family. All verbalized understanding. Patient received diabetic teaching by educator prior to leaving. The resident MD did diabetic teaching. RN did diabetic teaching all day as well as having patient do her own blood sugar checks, drawing up insulin, and giving insulin injections all day and days prior to discharge. Diabetic pamphlets, Diabetic diet info, and a one touch machine and supplies all given to patient. Patient was given prescriptions to get meds and supplies at pharmacy upon discharge. MD also called prescriptions into pharmacy as well prior to discharge. IVs x2 dcd. Patient dcd to home at around 1900 with family.
--- NOTE | 2017-05-31 18:53 | PCM.DC.MED ---
Discharge Summary Date of Service May 31, 2017 Dates of Hospitalization Date of Hospital Admission May 28, 2017 at 11:27 Date of Discharge: May 31, 2017 Providers: Admitting Physician: Sunita Deras DO Primary Care Physician: Xochilt Baum Attending Physician: Sunita Deras DO Diagnosis at Time of Discharge Diagnosis at Time of Discharge Diabetic Keto-Acidosis Elevated Trans-aminases Oral Candidiasis Hypothyroidism Parotitis Procedures XRay, CTs & MRIs Abd US 05/28 IMPRESSION: Echogenic liver suggestive of diffuse hepatocellular disease/fatty filtration. Normal appearance of the gallbladder. Pancreas not well seen and recommend clinical/laboratory correlation. Left renal cyst. Dictated by: Oli Hidalgo M.D. on 05/28/2017 at 15:30 Approved by: Oli Hidalgo M.D. on 05/28/2017 at 15:33 Chest Xray 05/28 IMPRESSION: No acute cardiopulmonary disease. Dictated by: Eduard Dan M.D. on 05/28/2017 at 10:00 Approved by: Eduard Dan M.D. on 05/28/2017 at 10:01 Brief History Ms. Marie Vincent is a very pleasant primary Wolof speaking lady admitted to [facility] for one week of increased thirst, oral thrush, malaise , nausea and vomiting, blurry vision, lower extremity cramps, weakness and constipation. She reported 1 month ago visiting a medical clinic and was told due to her Hemoglobin A1c level of 7.6 that she was "pre-diabetic"and should begin Metformin 500 mg ER daily. After roughly 2 weeks, she began to experience blurry vision, a sore throat and oral thrush. She began rinsing her mouth and gargling with baking-soda for her sore throat but her weakness continued to deteriorate. Around the 22 of May she experienced some significant family stress along with new onset nausea and vomiting. During the past week she added more sugar to her coffee and increased her intake of milkshakes and other sweet drinks. She continued to remain very thirsty and very weak and decided to come to the emergency department. In the ED she was found to be have DKA and admitted to the ICU on DKA protocol with an insulin drip. She was fluid resuscitated (D5 NS and then D5 1/2 NS due to her elevated sodium) while her anion gap (initially 41) steadily resolved. She was started on Lantus (0.3U/kg) and transitioned off the insulin drip and placed on a diabetic diet. We increased her Lantus until we achieved adequate blood glucose values with ample mealtime coverage. She was noted to have oral ga as well and had a 5 day course of Fluconazole. The patient also reported parotitis which was nonpainful to palpation. Generally this condition resolves on its own however close follow-up as needed. As the patient is traveling to [place] was decided to empirically treat the patient and she should follow-up with her PCP when returning from [place] in 2 weeks. Hospital Course Ms. Marie Vincent is a very pleasant primary Wolof speaking lady admitted to [facility] for Diabetic Ketoacidosis and oral thrush. Diabetic Keto-Acidosis, Present on admission. Improving. - HA1c 12.1 - Insulin regimen is as follows: Start Lantus Insulin 40 Units twice per day. (40 Units in the morning and 40 Units at night.) Start Lispro Insulin 6 Units before meals (three meals per day). Start Metformin 500 mg Twice per day. Elevated Trans-aminases, present on admission. Stable. - US revealed fatty liver. Avoid Tylenol and Alcohol. Oral Candidiasis, Present on admission. Resolved. - Received Fluconazole 100 mg daily for 5 days Hypothyroidism, present on admission, chronic. Stable. - Continue Levothyroxine 115 Mcg Disposition: Patient was discharged in stable and improved condition. She and her family expressed understood her new diagnosis, insulin regimen, dietary needs and how to administer insulin. They also expressed understanding of what symptoms to look out for and when to seek medical attention. Exam Vital Signs (Last) Date Time Temp Pulse Resp B/P Pulse Ox O2 Delivery O2 Flow Rate FiO2 05/31/17 15:38 36.7 89 16 108/66 97 Room Air Exam General: female in no acute distress, well-developed, well-nourished, appropriately interactive HEENT: NCAT. PERRLA, EOMI. Oropharynx pink and moist, the white exudate in her oropharynx is largely gone, mild left parotid swelling nontender to palpation, gums intact no signs of erythema or edema Neck: Supple with full ROM. No JVD or thyromegaly. Cardiovascular: RRR with no murmurs, rubs, or gallops appreciated Pulmonary: CTA bilaterally with no crackles/wheezes/rhonchi. Normal respiratory effort. Abdomen: Bowel tones present. Soft, mildly obese nontender, nondistended. No hepatosplenomegaly appreciated. Extremities: No clubbing, cyanosis, edema appreciated. Skin: Normal temperature, decreased skin turgor, and texture; no rash, ulcers Neurological: Cranial nerves grossly intact. Normal muscle strength, tone, and bulk. Reflexes, coordination, and sensory function within normal limits. No known gait impairment. Psychiatric: Normal mood and affect. Alert and oriented to person, place, and time. Test 05/28/17 10:00 05/28/17 10:35 05/28/17 13:05 05/29/17 09:30 Hemoglobin A1c 12.1% (4.8-5.6) Hold Christianson Top Tube Received (Received) Ketones Small (Negative) Urine Color Straw (YELLOW) Urine Appearance Hazy (CLEAR,HAZY) Urine pH 5.5 (5.0-8.0) Urine Specific [place] 1.020 (1.003-1.035) Urine Protein 100mg/dL (NEG,TRACE) Urine Glucose (UA) 1000mg/dL (NEGATIVE) Urine Ketones 80mg/dL (NEGATIVE) Urine Occult Blood Large (NEGATIVE) Urine Nitrite Negative (NEGATIVE) Urine Bilirubin Negative (NEGATIVE) Urine Urobilinogen Normalmg/dL (NORMAL) Urine Leukocyte Esterase Negative (NEGATIVE) Urine RBC 3-10/hpf (0-2) Urine WBC 0-5/hpf (0-5) Urine Epithelial Cells Occasional/hpf (NONE-MOD) Urine Crystals None seen (NONE SEEN) Urine Bacteria Few/hpf (NONE-FEW) Urine Hyaline Casts None/lpf (NONE) Urine Granular Casts Occasional (NONE SEEN) Urine Waxy Casts None seen (NONE SEEN) Urine Red Blood Cell Casts None seen (NONE SEEN) Urine White Blood Cell Casts None seen (NONE SEEN) Urine Mucus None seen (None Seen) Urine Trichomonas None seen (NONE SEEN) Urine Yeast None (NONE SEEN) Urinalysis Comment None Urine Culture Reflexed Not indicated Thyroid Stimulating Hormone (TSH) 1.040uIU/mL (0.450-4.500) HIV (1&2) Ag and Ab, 4th Generation Non reactive (Non Reactive) Test 05/31/17 04:00 7/13/17 13:54 Neutrophils (%) (Auto) 66.7% (40-74) Lymphocytes (%) (Auto) 23.0% (14-46) Monocytes (%) (Auto) 6.1% (4-12) Eosinophils (%) (Auto) 3.7% (0-5) Basophils (%) (Auto) 0.2% (0-3) Magnesium Level 2.1mg/dL (1.6-2.6) White Blood Count 13.5th/mm3 (3.8-10.1) Red Blood Count 4.56mil/mm3 (3.90-5.20) Hemoglobin 12.8g/dL (12.0-15.6) Hematocrit 39.2% (35.0-46.0) Mean Corpuscular Volume 86.0fL (81-100) Mean Corpuscular Hemoglobin 28.1pg (27.0-35.0) Mean Corpuscular Hemoglobin Concent 32.7% (32.0-37.0) Red Cell Distribution Width 14.9% (12.3-15.4) Platelet Count 74bil/L (150-400) Sodium Level 137mEq/L (134-144) Potassium Level 4.1mEq/L (3.5-5.2) Chloride Level 98mEq/L (97-108) Carbon Dioxide Level 25mmol/L (18-29) Blood Urea Nitrogen 10mg/dL (6-24) Creatinine 0.45mg/dL (0.57-1.00) Estimat Glomerular Filtration Rate 210mL/min (>59) Glucose Level 141mg/dL (60-99) Calcium Level 9.0mg/dL (8.5-10.1) Total Bilirubin 0.5mg/dL (0.0-1.2) Aspartate Amino Transf (AST/SGOT) 123U/L (0-50) Alanine Aminotransferase (ALT/SGPT) 82U/L (0-32) Alkaline Phosphatase 154U/L (25-150) Total Protein 6.7g/dL (6.4-8.4) Albumin 3.4g/dL (3.4-5.0) Discharge Medications Discharge Medications Ibuprofen (Advil Migraine) 200 Mg Capsule 200 MG PO DAILY Prescribed by: REBECA LO DO Insulin Glargine (Lantus U100 Insulin Vial) 100 Unit/Ml Vial 40 UNIT SUBQ BID Prescribed by: REBECA LO DO Insulin Human Lispro (HumaLOG U100 Insulin Vial) 100 Unit/Ml Unit 6 UNIT SUBQ TIDWM Check blood sugars before meals and at bedtime. Use correction factor only before meals. Blood Sugar Lispro Correction: <151, 0 units; 151-175, 1 unit; 176-200, 2 units; 201-225, 3 units; 226-250, 4 units; 251-275, 5 units; 276-300 , 6 units; 301-325, 7 units; 326-350, 8 units; 351-375, 9 units; 376-400, 10 units; >400, 12 units. Prescribed by: REBECA LO DO Levothyroxine (Levothyroxine) 112 Mcg Tablet 112 MCG PO DAILY (Reported) Metformin (Metformin) 500 Mg Tablet 500 MG PO BID Prescribed by: REBECA LO DO Metformin ER (Metformin ER) 500 Mg Tablet 500 MG PO QPM (Reported) Additional med instructions Start Lantus Insulin 40 Units twice per day. (40 Units in the morning and 40 Units at night just before bed time.) Start Lispro Insulin 6 Units before meals (three meals per day). Start Metformin 500 mg Twice per day. Continue home Synthroid for hypothyroidism. Avoid Tylenol (Acetaminophen) and Naproxen. You may take Motrin for periodic headaches. Sliding Scale Lispro insulin: Blood Sugars = Meal time insulin 141 - 199 = 1 Unit 200 - 249 = 2 Units 250 - 299 = 3 Units 300 - 349 = 4 Units > 349 = 5 Units Followup Plan Follow-up plan We recommend very close follow up with your primary care physician immediately after arriving from [place]. We recommend that you document your measured blood sugars at least 5 times per day. First thing when you wake up in the morning. Just before you go to bed. And 1 hour after each meal. When you visit your primary care physician's office it would be very helpful to bring the journal of daily blood sugars, that way your primary care provider can make the necessary medication adjustments. Discharge Diet: Diabetic Discharge Activity: No restrictions Patient Instructions Your goal Blood sugars should be between 80 and 120. It is very dangerous to have blood sugars below 60! IF you have blood sugars below 60, eat something with sugar in it. If your sugars are lower than 60 call your primary care physician or if you have symptoms of hypoglycemia including decreased level of consciousness or altered mental status, seek emergent medical professional help. Your diet is very important. Avoid carbohydrates (breads, potatoes, carrots, sugars, etc...). I recommend eating meats and vegetables (above ground vegetables). You will need Lab roughly every 3 months to follow your Hemoglobin A1c levels with a goal of below 6.5. We recommend that you document your measured blood sugars at least 5 times per day. First thing when you wake up in the morning. Just before you go to bed. And 1 hour after each meal. When you visit your primary care physician's office it would be very helpful to bring the journal of daily blood sugars, that way your primary care provider can make the necessary medication adjustments. We will write you a note for work stating that you have been admitted to the [facility] from the to the . We will also provide you with prescriptions for lancets and glucose test strips. We will provide you with additional diabetes education materials including home sliding scales. We Highly recommend diabetes education classes on a regular basis. Your liver function tests were slightly elevated, most likely due to Non- Alcoholic Steatohepatitis (RENO). It is important to follow up with your primary care physician in your visit 2 weeks from now. Follow-up Provider: Xochilt Baum Follow-up with PCP in: 2 weeks (1-2 weeks) Time spent Greater than 35 minutes Attending Statement The patient was seen and examined together with Dr. Fernandez on 05/31/2017 and I have added additional information to the note above. copies to: Xochilt Baum Jeffery S DO May 31, 2017 18:53 Sunita Deras DO Jun 02, 2017 14:04 Follow-up Provider: Xochilt Baum Follow-up with PCP in: 2 weeks (1-2 weeks) Riley Fernandez DO May 31, 2017 18:53
== END 2017-05-31 18:59 | disposition home or self-care (01) | DRG 638 ==
LOC: SED 09:24 → CCU 11:27 → PCC 05-29 14:16
PROVIDERS: ADMIT Neuromusculoskeletal Medicine & OMM; ATTEND Neuromusculoskeletal Medicine & OMM
PROC: 4A033R1 Measurement of Arterial Saturation, Peripheral, Percutaneous Approach (ICD-10-PCS; principal; 2017-05-28)
DX: E13.10 Other specified diabetes mellitus with ketoacidosis without coma (principal); B37.0 Candidal stomatitis; E03.9 Hypothyroidism, unspecified; K11.20 Sialoadenitis, unspecified; Z79.84 Long term (current) use of oral hypoglycemic drugs; Z88.0 Allergy status to penicillin